=== PATIENT | male | born 1995 | race Caucasian/White ===

== ENCOUNTER 2019-03-16 09:12 | Emergency (ER) | payer OTHER ==
--- NOTE | 2019-03-16 10:23 | ED ---
Lower Extremity - HPI Summary HPI Summary: This patient is a 23 year old M presenting to ED with a chief complaint of left thigh pain since yesterday. 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 The chisel broke and the patient reports that a piece of it went into his leg. Patient was seen at [facility] yesterday. They did an XR but were unable to the metal out. Today, the patient is having pain in the L thigh. He denies any other injuries. The patient rates the pain 3/10 in severity. Symptoms aggravated by nothing. Symptoms alleviated by nothing. Patient denies fever. Patient's last tetanus was in October 2018. - History of Current Complaint Chief Complaint: EDExtremityLower Stated Complaint: LT LEG FOREIGN BODY PER PT Time Seen by Provider: 03/16/19 10:13 Hx Obtained From: Patient Mechanism Of Injury: Other - Broken chisel Onset of Pain: Prior to Arrival Onset/Duration: Worse Since - Accident happened yesterday Severity Initially: Mild Severity Currently: Mild Pain Intensity: 3 Pain Scale Used: 0-10 Numeric Timing: Constant Location: Is Discrete @ - L thigh Associated Signs And Symptoms: Negative: Fever Aggravating Factor(s): Nothing Alleviating Factor(s): Nothing Related History: Occupational Injury - Allergies/Home Medications Allergies/Adverse Reactions: Allergies Allergy/AdvReac Type Severity Reaction Status Date / Time No Known Allergies Allergy Verified 03/16/19 09:17 Home Medications: Home Medications Omeprazole 20 mg PO DAILY 03/16/19 [History Confirmed 03/16/19] PMH/Surg Hx/FS Hx/Imm Hx Endocrine/Hematology History: Denies: Hx Diabetes Cardiovascular History: Denies: Hx Hypercholesterolemia, Hx Hypertension Respiratory History: Denies: Hx Asthma Sensory History: Denies: Hx Legally Blind, Hx Deafness Opthamlomology History: Denies: Hx Legally Blind EENT History: Denies: Hx Deafness - Surgical History Surgery Procedure, Year, and Place: denies Infectious Disease History: No Infectious Disease History: Denies: Traveled Outside the [place] in Last 30 Days - Family History Known Family History: Negative: Cardiac Disease, Hypertension, Diabetes, Respiratory Disease - Social History Alcohol Use: Daily Hx Substance Use: No Substance Use Type: Reports: None Hx Tobacco Use: No Smoking Status (MU): Never Smoked Tobacco Review of Systems Negative: Fever Musculoskeletal: Other - L thigh pain All Other Systems Reviewed And Are Negative: Yes Physical Exam - Summary Physical Exam Summary: VITAL SIGNS: Reviewed. GENERAL: Patient is a well-developed and nourished M who is lying comfortable in the stretcher. Patient is not in any acute respiratory distress. HEAD AND FACE: No signs of trauma. No ecchymosis, hematomas or skull depressions. No sinus tenderness. EYES: PERRLA, EOMI x 2, No injected conjunctiva, no nystagmus. EARS: Hearing grossly intact. Ear canals and tympanic membranes are within normal limits. MOUTH: Oropharynx within normal limits. NECK: Supple, trachea is midline, no adenopathy, no JVD, no carotid bruit, no c- spine tenderness, neck with full ROM. CHEST: Symmetric, no tenderness at palpation. LUNGS: Clear to auscultation bilaterally. No wheezing or crackles. CVS: Regular rate and rhythm, S1 and S2 present, no murmurs or gallops appreciated. ABDOMEN: Soft, non-tender. No signs of distention. No rebound, no guarding, and no masses palpated. Bowel sounds are normal. EXTREMITIES: Small laceration to the left thigh, unable to palpate any type of metal. NEURO: Alert and oriented x 3. No acute neurological deficits. Speech is normal and follows commands. SKIN: Dry and warm. Triage Information Reviewed: Yes Vital Signs On Initial Exam: Initial Vitals Temp Pulse Resp BP Pulse Ox 96.9 F 70 16 141/85 98 03/16/19 09:15 03/16/19 09:15 03/16/19 09:15 03/16/19 09:15 03/16/19 09:15 Vital Signs Reviewed: Yes Procedures - Procedure Summary Procedure Summary: Performed bedside US to visualize the location of the metallic foreign object in reference to nearby blood vessels. Diagnostics - Vital Signs Vital Signs Temp Pulse Resp BP Pulse Ox 03/16/19 09:15 96.9 F 70 16 141/85 98 - Laboratory Lab Statement: Any lab studies that have been ordered have been reviewed, and results considered in the medical decision making process. - Radiology L femur XR Radiology Interpretation Completed By: Radiologist Summary of Radiographic Findings: METALLIC FOREIGN BODY IN THE MEDIAL SOFT TISSUES OF THE DISTAL THIGH,. UNCHANGED. Dr. Ashley has reviewed this radiology report. Re-Evaluation - Re-Evaluation First Eval Re-Evaluation Time: 11:10 Comment: Discussed results with patient. Patient will be discharged home with dx of foreign body. Patient understands and agrees with this plan. Lower Extremity Course/Dx - Course Assessment/Plan: X-ray of the left thigh impression: Metallic foreign body in the medial soft tissue of the distal site. Discussed the case with and Dr. Cash from orthopedics and he recommends for the patient to be discharged and he will follow-up at his office tomorrow. He thinks that the patient can go to work if he wants the piece of metal to be removed. I discussed the plan with the patient and he agrees. The patient is hemodynamically stable alert and oriented 3. - Diagnoses Provider Diagnoses: Foreign body (FB) in soft tissue - Physician Notifications Discussed Care Of Patient With: Ulisses Cash Time Discussed With Above Provider: 11:06 Instructed by Provider To: Have Pt Call For Appt. - Discussed patient case with Dr. Cash, ortho, who stated that the foreign body does not need need to be removed. However, if the patient wants to have it removed, they can do so in the OR as the object is fairly deep. He stated the patient can be discharged home with instructions to call the ortho office for an appointment tomorrow to schedule the removal operation. Discharge ED - Sign-Out/Discharge Documenting (check all that apply): Patient Departure - Discharge Patient Received Moderate/Deep Sedation with Procedure: No - Discharge Plan Condition: Stable Disposition: HOME Patient Education Materials: Soft Tissue Foreign Body (ED) Referrals: Jesus EUGENE,Tonio Jung [Primary Care Provider] - 3 Days Ulisses Cash MD [Medical Doctor] - 1 Day Additional Instructions: FOLLOW UP WITH YOUR PRIMARY CARE PROVIDER WITHIN ONE WEEK. FOLLOW UP WITH DR. CASH, ORTHOPEDIC SURGEON TOMORROW TO SCHEDULE A SURGERY APPOINTMENT. RETURN TO THE ED FOR ANY WORSENING OR NEW SYMPTOMS. - Billing Disposition and Condition Condition: STABLE Disposition: Home - Attestation Statements Document Initiated by Scribe: Yes Documenting Scribe: Paul Reyes Provider For Whom Scribe is Documenting (Include Credential): Moises Ashley MD Scribe Attestation: Paul Cuevas, scribed for Moises Ashley MD on 03/16/19 at 1831. Scribe Documentation Reviewed: Yes Provider Attestation: The documentation as recorded by the scribe, Paul Reyes accurately reflects the service I personally performed and the decisions made by me, Moises Ashley MD Status of Scribe Document: Viewed
[2019-03-16 11:31] VITALS: BP 145/87
== END 2019-03-16 11:30 | disposition home or self-care (01) ==
LOC: ED 09:12
DX: S70.352A Superficial foreign body, left thigh, initial encounter (principal); X58.XXXA Exposure to other specified factors, initial encounter; Y92.89 Other specified places as the place of occurrence of the external cause; Y99.0 Civilian activity done for income or pay; Z79.899 Other long term (current) drug therapy
CPT/HCPCS: 99282

== ENCOUNTER → 2019-03-24 | Day surgery (SDC) | payer OTHER ==
[~2019-03-24] MED LIST: Buffered Lidocaine 1% SYRIN* 1 ML/SYRINGE INTRADERM ONE; Lactated Ringers 1000 ML Bag* 1,000 ML IV SCH; Lidocaine 1% INJ* 10 MG/ML 30 ML SDV ONE; Lidocaine 2% PF * 5 ML VIAL ONE; Midazolam* 1 MG/ML 2 ML VIAL (2 MG) ONE; Naloxone* 0.4 MG/ML 1 ML VIAL IV PRN; Propofol* 10 MG/ML 20 ML BTL ONE; Sodium Citrate/Citric Acid* 15 ML UDC ONE; Sodium Citrate/Citric Acid* 15 ML UDC PO ONE; ceFAZolin 2 GM PREMIX in ORs 2 GM/50 ML BAG ONE
--- NOTE | 2019-03-24 12:19 | OP ---
Operative Report - Blank - Operative Report Date of Operation: 03/24/19 Note: PATIENT: Ubaldo Munoz DATE OF : 1995 DATE OF SURGERY: 03/24/2019 SURGEON: Kwabena Huang MD ASSISTIVE TECHNOLOGY SPECIALIST: XOCHITL Ray, whos assistance was necessary for positioning, retraction, help with instrumentation, and closure. ANESTHESIOLOGIST: Dr. Norwood PREOPERATIVE DIAGNOSIS: Left thigh retained foreign body POSTOPERATIVE DIAGNOSIS: Left thigh retained foreign body OPERATION: Left thigh removal of foreign body ANESTHESIA: MAC IMPLANTS: none TOURNIQUET TIME: None SPECIMENS: none ESTIMATED BLOOD LOSS: minimal COMPLICATIONS: none STATUS: Stable from the operating room to the recovery room and then home. INDICATIONS FOR PROCEDURE: Amadeo has a retained left thigh foreign body that causes pain and has caused some cellulitis. Both operative and non-operative treatment alternatives were reviewed. Further, the nature and risks of surgery were reviewed in careful detail. Our discussions regarding the risks of surgery included, but were not limited to, infection, wound problems, nerve injury, neuroma, RSD, persistent symptoms, blood clot, need for further surgery, failure of the surgery, and even the remote chance of catastrophic complication. DESCRIPTION OF PROCEDURE: The patient was seen in the preoperative holding unit and informed written consent was obtained. The appropriate extremity was marked. The patient was then brought to the operating room and carefully positioned on the operating room table. Anesthesia was induced. All bony prominences were padded with great care. A chlorhexidine based pre-scrub was performed followed by a chloraprep prep and drape in standard sterile fashion. A surgical safety pause was then conducted in which we confirmed the appropriate patient, extremity, planned procedure, availability of equipment, indication and administration of prophylactic antibiotics, and DVT prophylaxis in the form of a compression boot on the non-surgical extremity. I began by making a longitudinal incision overlying the puncture wound. I then carefully dissected down through the skin, subcutaneous, down to the fascia/ muscle. The foreign body was encountered in the muscle. It was excised in its entirety. No other retained foreign bodies were appreciated. There was some mild purulence surrounding it, which was thoroughly irrigated. The remaining tissue appeared of good, viable quality. Meticulous hemostasis was obtained. The wound was then copiously irrigated and meticulously closed in layers utilizing 3-0 Monocryl for the dermal layer and 3-0 nylon for the skin. A sterile dressing was then applied. The patient was then awakened from anesthesia and transferred to the recovery room in stable condition. There were no complications. All needle and sponge counts were correct at the end of the case. ATTESTATION: I attest I was present and scrubbed and performed the critical portions of the procedure myself. POSTOPERATIVE PLAN: He will follow up in 2 weeks for likely suture removal.
[2019-03-24 12:53] VITALS: BP 127/80
== END | disposition home or self-care (01) ==
LOC: OR 09:19
PROVIDERS: ATTEND Orthopaedic Surgery
DX: S71.142A Puncture wound with foreign body, left thigh, initial encounter (principal); Z72.0 Tobacco use; K21.9 Gastro-esophageal reflux disease without esophagitis; W20.8XXA Other cause of strike by thrown, projected or falling object, initial encounter; Y93.89 Activity, other specified; Y92.9 Unspecified place or not applicable
CPT/HCPCS: 88300; A9270-GY; J0690; J2250; J2704